=== PATIENT | female | born 1990 | race Hispanic/Latino ===

== ENCOUNTER 2023-07-31 07:30 | Outpatient (CLI) | payer BC, MEDICAID, SELFPAY ==
[2023-07-31 08:51] LABS: Basophils Percent Auto 0.3 % (0.2-1.2); Eosinophils Absolute Auto 0.1 K/mm3 (0-0.3); Eosinophils Percent Auto 0.5 % (0-4.4); Hemoglobin 13.3 g/dL (12.0-15.0); Immature Granulocyte Absolute 0.04 K/mm3 (0.00-0.031); Immature Granulocyte Percent A 0.4 % (0-0.5); Lymphocytes Absolute Auto 2.51 K/mm3 (0.9-3.2); Lymphocytes Percent Auto 27.1 % (18.3-44.2); Mean Corpuscular HGB Conc 30.9 g/dl (32-36); Mean Corpuscular Hemoglobin 26.1 pg (26-34); Mean Corpuscular Volume 84.5 fl (80-100); Monocytes Absolute Auto 0.4 K/mm3 (0.1-0.6); Monocytes Percent Auto 4.6 % (2.6-8.5); Neutrophils Absolute Auto 6.2 K/mm3 (1.3-6.7); Neutrophils Percent Auto 67.1 % (45.5-73.1); Platelet Count Result 239 k/mm3 (150-375); Red Blood Count 5.09 M/mm3 (4.2-5.4); Red Cell Distribution Width 16.3 % (11.5-14.5); White Blood Count 9.3 K/mm3 (4.5-10.0)
[2023-07-31 08:59] LABS: Glucose 1 Hour PP 50gm Dose 119 mg/dL
[2023-07-31 09:39] LABS: HIV 1/2 Ab P24 Ag Result Negative (Negative)
[2023-07-31 09:41] LABS: Hepatitis B Surface Antigen Negative (Negative); Rubella IgG Antibody 15.9 IU/ML
[2023-07-31 14:31] LABS: Rapid Plasma Reagin Non-Reactive (NonReactive)
[2023-08-03 10:02] LABS: CMV IgG Antibody >10.00 U/mL (<0.60)
== END 2023-07-31 07:31 | disposition home or self-care (01) ==
LOC: ANHLAB 07:32
PROVIDERS: PCP Family Medicine; Visit Provider Obstetrics & Gynecology
DX: N91.2 Amenorrhea, unspecified (principal)
CPT/HCPCS: 36415; 82947; 84702; 85025; 86592; 86644; 86703; 86747; 86762; 86787; 86850; 86900; 86901; 87086; 87340; G0432

== ENCOUNTER 2023-08-08 07:59 | Emergency (ER) | payer BC, MEDICAID, SELFPAY ==
--- NOTE | ~2023-08-08 | US_ITS ---
EXAMINATION: US OB <= 14 weeks fetus DATE: 08/08/2023 09:48 INDICATION: Vaginal bleeding during first trimester TECHNIQUE: Real-time pelvic transabdominal and transvaginal ultrasound was performed. COMPARISON: None. FINDINGS: The uterus measures 14.1 x 7.9 x 9.8 cm.. There is an intrauterine gestational sac. There i s a 2.2 x 1.9 x 0.8 cm hypoechoic area adjacent to the gestational sac. heart motion is identif ied measuring 161 beats per minute (bpm) by M-mode Doppler. The crown rump length measures 4.4 cm, which correlates with an estimated gestational age of 11 weeks and 2 day(s) (+/-) 7 day(s). The ovaries are not visualized however no adnexal abnormality is seen. There is no free fluid in the pelvis. IMPRESSION: 1. Live intrauterine with an estimated gestational age of 11 weeks and 2 day(s) (+/-) 7 day (s) and an estimated delivery date of 02/25/2024. 2. Subchorionic hemorrhage. Reviewed, dictated and finalized at location F. [facility] IMPRESSION: 1. Live intrauterine with an estimated gestational age of 11 weeks an d 2 day(s) (+/-) 7 day(s) and an estimated delivery date of 02/25/2024. 2. Subchorionic hemorrhage.
[2023-08-08 08:03] VITALS: BP 149/86; PULSE 97; RESP 18; TEMP 36.4; O2SAT 99
--- NOTE | 2023-08-08 08:31 | ED.PREGNANCY ---
HPI - General Chief complaint: Vaginal Bleeding Stated complaint: 11 wks preg with bleeding Time Seen by Provider: 08/08/23 08:05 History of Present Illness HPI Narrative: 33-year-old female presenting to the emergency department for evaluation onset of vaginal bleeding this morning. Patient is with no prior complications with her . Patient states she is approximately 11 weeks and does follow-up with Dr. Powell. Patient has not had prior ultrasound with this . Patient describes having some dark red/brown blood. Patient noticed when she wiped she had some blood on the toilet paper but then when she looked to the bowl she has additional bleeding. Patient denies any associated abdominal pain with this. Related Data Home Medications Medication Instructions Recorded Confirmed propranolol 60 mg tablet 60 mg PO ONCE 08/22/22 07/29/23 Allergies Allergy/AdvReac Type Severity Reaction Status Date / Time No Known Allergies Allergy Unknown Verified 07/29/23 08:21 Review of Systems Review of Systems: All systems reviewed & are unremarkable except as noted in HPI and below PMFSH Past Medical History Medical History (Updated 08/08/23 @ 10:31 by Federico Fried MD) Heart palpitations Surgical History Surgical History H/O eye surgery History of cholecystectomy History of colposcopy Family History Family History Mother Diabetes mellitus Father Hypertension Social History Social History (Updated 07/29/23 @ 08:24 by ADINA Killian) Smoking status: Never smoker Second hand tobacco smoke exposure: No Alcohol intake: never Substance use: never Substance use type: does not use Do You Feel Safe in your Home?: Yes Lack of Transportation: No Lack of Food: Never True Current Housing: I Have Housing Concerned About Future Housing: No Difficulty Paying Gas/Electric Bills: No Difficulty Paying for Meds: No Currently Unemployed: No Education: Trade/Vocational Certificate Difficulty w/ Childcare or Family Care: No Living arrangements: other Additional living arrangements comments: children Occupation/Education: occupation Additional occupation/education comments: broker assistant Gender identity (if verbalized by the patient): Female Sexual Orientation (if Verbalized by the Patient): Straight or Heterosexual Exam Narrative: APPEARANCE: Well appearing, no pain, no distress, well-nourished. HEAD: normocephalic, atraumatic. EYES: PERRLA/EOMI, conjunctivae clear. NOSE: Normal no drainage EARS:TMS clear with good light reflex. THROAT: Pharynx clear, no exudate. NECK: Supple. No adenopathy, no masses. RESPIRATORY: Airway patent, respirations nonlabored. Clear to auscultation bilaterally, no rales, rhonchi, wheezing. CARDIOVASCULAR: Regular rate and rhythm without murmurs rubs or gallops. ABDOMINAL: Soft, nontender, nondistended, normal bowel sounds MUSCULOSKELETAL: Moves all extremities. Strength/ROM intact, No edema, No calf tenderness. NEURO: Alert. Cranial nerves II through XII intact. Grossly intact SKIN: Warm, dry. Normal Color Course Vital Signs Vital signs: Vital Signs Temperature 97.6 F 08/08/23 08:03 Pulse Rate 97 08/08/23 08:03 Respiratory Rate 18 08/08/23 08:03 Blood Pressure 149/86 H 08/08/23 08:03 Pulse Oximetry 99 08/08/23 08:03 Oxygen Delivery Room Air 08/08/23 08:03 Temperature 97.6 F 08/08/23 08:03 Pulse Rate 77 08/08/23 10:44 Respiratory Rate 17 08/08/23 10:44 Blood Pressure 114/78 08/08/23 10:44 Pulse Oximetry 100 08/08/23 10:44 Oxygen Delivery Room Air 08/08/23 08:03 MDM - OB/Uterine Contractions Differential Diagnosis Differential diagnosis: Likely normal delivery at term and premature labor Lab Data Attestation: I reviewed the patient
[2023-08-08] MEDS: SODIUM CHLORIDE 0.9% IV 1,000 ML 999 ML IV CONT (08:42)
[2023-08-08 08:48] VITALS: BP 109/75; PULSE 77; RESP 16; O2SAT 99
[2023-08-08 08:53] LABS: Basophils Percent Auto 0.4 % (0.2-1.2); Eosinophils Absolute Auto 0.1 K/mm3 (0-0.3); Eosinophils Percent Auto 0.5 % (0-4.4); Hemoglobin 13.4 g/dL (12.0-15.0); Immature Granulocyte Absolute 0.03 K/mm3 (0.00-0.031); Immature Granulocyte Percent A 0.3 % (0-0.5); Lymphocytes Absolute Auto 3.51 K/mm3 (0.9-3.2); Lymphocytes Percent Auto 34.6 % (18.3-44.2); Mean Corpuscular HGB Conc 31.2 g/dl (32-36); Mean Corpuscular Hemoglobin 26.5 pg (26-34); Mean Platelet Volume 10.1 fl (7.4-10.4); Monocytes Absolute Auto 0.5 K/mm3 (0.1-0.6); Monocytes Percent Auto 4.9 % (2.6-8.5); Neutrophils Percent Auto 59.3 % (45.5-73.1); Platelet Count Result 235 k/mm3 (150-375); Red Blood Count 5.06 M/mm3 (4.2-5.4); Red Cell Distribution Width 16.7 % (11.5-14.5); White Blood Count 10.2 K/mm3 (4.5-10.0)
[2023-08-08 09:07] LABS: Bacteria Urine 1+ /hpf; Need Manual Microscopic Reviewed; Non Pathogenic Casts 0-2; RBC Urine >100 /hpf (0-2); Squamous Epithelial Cell Urine Few /hpf (Few)
[2023-08-08 09:08] LABS: Appearance Urine Turbid (Clear); Bilirubin Urine 1+ (Negative); Blood Urine 3+ (Negative); Color Urine Orange (Yellow); Glucose Urine UA Negative (Negative); Ketones Urine Negative (Negative); Leukocyte Esterase Ur 1+ LEU/UL (Negative); Nitrate Urine Negative (Negative); Protein Urine 2+ mg/dL (Negative); Specific Grav Ur 1.021 (1.001-1.035); Urobilinogen Urine 0.2 mg/dL (<2.0)
[2023-08-08 09:14] LABS: Add Urine Microscopic? YES
[2023-08-08 10:44] VITALS: BP 114/78; PULSE 77; RESP 17; O2SAT 100
== END 2023-08-08 10:46 | disposition home or self-care (01) ==
PROVIDERS: Emergency Provider Emergency Medicine; PCP Nurse Practitioner Family
DX: O46.8X1 Other antepartum hemorrhage, first trimester (principal); Z90.49 Acquired absence of other specified parts of digestive tract
CPT/HCPCS: 36415; 76801; 81001; 84702; 85025; 85461; 86850; 86900; 86901; 87086; 87088; 99284; J7030

== ENCOUNTER 2023-11-27 07:54 | Outpatient (CLI) | payer BC, MEDICAID, SELFPAY ==
[2023-11-27 09:22] LABS: Basophils Percent Auto 0.3 % (0.2-1.2); Eosinophils Absolute Auto 0.1 K/mm3 (0-0.3); Eosinophils Percent Auto 0.5 % (0-4.4); Hematocrit 40.4 % (37.0-47.0); Immature Granulocyte Absolute 0.13 K/mm3 (0.00-0.031); Immature Granulocyte Percent A 1.1 % (0-0.5); Lymphocytes Absolute Auto 2.57 K/mm3 (0.9-3.2); Lymphocytes Percent Auto 22.4 % (18.3-44.2); Mean Corpuscular HGB Conc 32.2 g/dl (32-36); Mean Corpuscular Hemoglobin 28.8 pg (26-34); Mean Corpuscular Volume 89.4 fl (80-100); Monocytes Absolute Auto 0.5 K/mm3 (0.1-0.6); Monocytes Percent Auto 4.2 % (2.6-8.5); Neutrophils Absolute Auto 8.2 K/mm3 (1.3-6.7); Neutrophils Percent Auto 71.5 % (45.5-73.1); Platelet Count Result 210 k/mm3 (150-375); Red Blood Count 4.52 M/mm3 (4.2-5.4); Red Cell Distribution Width 14.8 % (11.5-14.5); White Blood Count 11.5 K/mm3 (4.5-10.0)
[2023-11-27 09:39] LABS: Glucose 1 Hour PP 50gm Dose 159 mg/dL
[2023-11-27 10:27] LABS: HIV 1/2 Ab P24 Ag Result Negative (Negative)
== END 2023-11-27 07:55 | disposition home or self-care (01) ==
PROVIDERS: PCP Nurse Practitioner Family; Visit Provider Obstetrics & Gynecology
DX: Z34.90 Encounter for supervision of normal pregnancy, unspecified, unspecified trimester (principal); Z3A.00 Weeks of gestation of pregnancy not specified
CPT/HCPCS: 36415; 82947; 85025; 86703; G0432

== ENCOUNTER 2023-12-04 06:51 | Outpatient (CLI) | payer BC, MEDICAID, SELFPAY ==
[2023-12-04 07:20] LABS: Glucose Fasting Gestational 90 mg/dL (>/=95)
[2023-12-04 09:08] LABS: Glucose 1 Hour Gest 126 mg/dL (>/=180)
[2023-12-04 09:49] LABS: Glucose 2 Hour Gest 126 mg/dL (>/= 155)
[2023-12-04 10:37] LABS: Glucose 3 Hour Gest 122 mg/dL (>/=140)
== END 2023-12-04 06:52 | disposition home or self-care (01) ==
LOC: ANHLAB 06:53
PROVIDERS: PCP Nurse Practitioner Family; Visit Provider Obstetrics & Gynecology
DX: R73.09 Other abnormal glucose (principal)
CPT/HCPCS: 36415; 82951; 82952

== ENCOUNTER 2023-12-10 10:16 | Observation (INO) | payer BC, MEDICAID, SELFPAY ==
--- NOTE | ~2023-12-10 | US_ITS ---
EXAMINATION: US renal BI DATE: 12/10/2023 12:35 INDICATION: Low back pain and hematuria TECHNIQUE: Multiple ultrasound grayscale images of the kidneys were obtained. COMPARISON: None. FINDINGS: The right kidney measures 12.1 x 5.1 x 7.2 cm. The left kidney measures 13.1 x 5.0 x 6.0 cm. The kidn eys demonstrate normal echogenicity. There is no hydronephrosis in either kidney. No stones identifi ed. The bladder is normal with bilateral ureteral jets visualized on color Doppler. Partially visuali zed gravid uterus along the dome of the bladder. IMPRESSION: 1. Mild right hydronephrosis with no evident urolithiasis and with bilateral ureteral jets visualize d in the bladder. This could be related to extrinsic compression of the right ureter by the gravid ut erus. Reviewed, dictated and finalized at location A. IMPRESSION: 1. Mild right hydronephrosis with no evident urolithiasis and with bilateral u reteral jets visualized in the bladder. This could be related to extrinsic comp ression of the right ureter by the gravid uterus.
--- NOTE | 2023-12-10 10:15 | OBADM ---
This patient, Callie Varma, admitted to the OB room OB Post 116 for observation. Patient/family oriented to hospital policies and general routines including ID bracelet, bed and alarms, visiting hours, pain management, procedures, bathroom and other care routines, personal items, smoking policy, room service/diet, and visiting hours. Patient/Family are encouraged to report perceived risks to care and to ask questions if they do not understand what they are told or what they should do.
--- NOTE | 2023-12-10 10:31 | PC.NURSE ---
Pt comes in with complaints of lower back pain and increased pressure of about the last hour. Pt denies increase in discharge and denies her water being broke. 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 Pt denies anything in the vagina in the last 24 hours.
--- NOTE | 2023-12-10 10:40 | PC.NURSE ---
pt states that since she has been laying down and on the monitor here her pain has gone away and the pressure has decreased. Pt was previously rating the pain 6/10.
[2023-12-10 10:45] VITALS: BP 120/75; PULSE 74
[2023-12-10 10:48] LABS: Add Urine Microscopic? YES; Appearance Urine Clear (Clear); Bacteria Urine None Seen /hpf; Bilirubin Urine Negative (Negative); Blood Urine 2+ (Negative); Color Urine Yellow (Yellow); Glucose Urine UA Negative (Negative); Ketones Urine Negative (Negative); Leukocyte Esterase Ur Trace LEU/UL (Negative); Nitrate Urine Negative (Negative); Non Pathogenic Casts 0-2; Protein Urine Negative (Negative); RBC Urine 51-100 /hpf (0-2); Specific Grav Ur 1.012 (1.001-1.035); Squamous Epithelial Cell Urine Occasional /hpf (Few); Urobilinogen Urine 0.2 mg/dL (<2.0); WBC Urine 0-5 /hpf (0-3); pH Urine 6.5 (5.0-9.0)
[2023-12-10 10:50] VITALS: BMI 36.6
--- NOTE | 2023-12-10 10:59 | PC.NURSE ---
Pt denies hx of UTI, no hx of kidney stones. pt denies complaint of pain at this time.
[2023-12-10 11:00] VITALS: BP 119/72; PULSE 71
[2023-12-10 11:15] VITALS: BP 114/76; PULSE 72
--- NOTE | 2023-12-10 11:20 | PC.NURSE ---
Dr. Zuniga updated on pt. MD order ultrasound kidney and then pt can be discharged after.
[2023-12-10 11:30] VITALS: BP 126/75; PULSE 73
--- NOTE | 2023-12-10 11:42 | PC.NURSE ---
okay with pt coming off the monitor.
[2023-12-10 11:48] VITALS: BP 120/75; PULSE 91
--- NOTE | 2023-12-15 10:35 | P.PNOB_ITS ---
OB - Triage/Final Diagnosis Visit Information Reason for evaluation: threatened labor Comments/Additional reasons for admission: I have assessed the risk for this patient, Callie Varma, and determined that she would benefit from observation care. Evaluation Laboratory results: Laboratory Tests 12/10/23 10:36 Urine Color Yellow Urine Appearance Clear Urine pH 6.5 Ur Specific [place] 1.012 Urine Protein Negative Urine Glucose (UA) Negative Urine Ketones Negative Ur Blood (Man) 2+ H Urine Nitrate Negative Urine Bilirubin Negative Urine Urobilinogen 0.2 Leukocyte Esterase Rfl Trace H Urine RBC 51-100 H Urine WBC 0-5 Ur Squamous Epith Cells Occasional Urine Bacteria None seen Urine Casts 0-2
== END 2023-12-10 13:01 | disposition home or self-care (01) ==
LOC: ANHOBOP 10:20 → ANHOBPP 10:20 → ANHOBOP 10:35 → ANHOBPP 10:35
PROVIDERS: Admitting Provider Obstetrics & Gynecology; PCP Nurse Practitioner Family; Visit Provider Obstetrics & Gynecology
DX: O47.03 False labor before 37 completed weeks of gestation, third trimester (principal); Z3A.28 28 weeks gestation of pregnancy
CPT/HCPCS: 59025; 76775; 81001; 87086; 87088; G0378; G0379

== ENCOUNTER 2024-02-19 04:59 | Inpatient (IN) | payer BC, MEDICAID, SELFPAY ==
[2024-02-19] VITALS (166 sets, daily range): BP systolic 98–155; BP diastolic 49–108; PULSE 25–110; RESP 16–18; TEMP 36.2–37.5; O2SAT 76–100; BMI 37.0
--- NOTE | 2024-02-19 04:59 | LDADM ---
This patient, Callie Varma, was admitted to Labor/Delivery/Recovery 104 on 02/19/24 at 04:59. Plans for labor, pain management and were discussed with patient. Patient/family oriented to hospital policies and general routines including ID bracelet, bed and alarms, visiting hours, pain management, procedures, bathroom and other care routines, personal items, smoking policy, room service/diet and guest tray routines, security routines, and visiting hours. Patient/Family are encouraged to report perceived risks to care and to ask questions if they do not understand what they are told or what they should do. See [facility]BI[facility] for further documentation.
[2024-02-19 06:22] LABS: Basophils Percent Auto 0.3 % (0.2-1.2); Eosinophils Absolute Auto 0.1 K/mm3 (0-0.3); Eosinophils Percent Auto 0.8 % (0-4.4); Hematocrit 40.4 % (37.0-47.0); Hemoglobin 13.4 g/dL (12.0-15.0); Immature Granulocyte Absolute 0.07 K/mm3 (0.00-0.031); Immature Granulocyte Percent A 0.7 % (0-0.5); Lymphocytes Absolute Auto 2.91 K/mm3 (0.9-3.2); Lymphocytes Percent Auto 28.5 % (18.3-44.2); Mean Corpuscular HGB Conc 33.2 g/dl (32-36); Mean Corpuscular Hemoglobin 29.2 pg (26-34); Mean Platelet Volume 9.9 fl (7.4-10.4); Monocytes Absolute Auto 0.7 K/mm3 (0.1-0.6); Monocytes Percent Auto 6.4 % (2.6-8.5); Neutrophils Absolute Auto 6.5 K/mm3 (1.3-6.7); Neutrophils Percent Auto 63.3 % (45.5-73.1); Platelet Count Result 205 k/mm3 (150-375); Red Blood Count 4.59 M/mm3 (4.2-5.4); Red Cell Distribution Width 14.7 % (11.5-14.5); White Blood Count 10.2 K/mm3 (4.5-10.0)
[2024-02-19] MEDS: LACTATED RINGERS 1,000 ML 125 ML IV CONT ×2 (06:27→08:21)
[2024-02-19] MEDS: OXYTOCIN 30 UNITS/NS 500 ML 30 UNITS/500 ML BAG IV CONT (06:28)
[2024-02-19 07:16] LABS: HIV 1/2 Ab P24 Ag Result Negative (Negative)
--- NOTE | 2024-02-19 07:22 | WPDHPUPDATE1 ---
History and Physical Update Update Date/Time: 02/19/24 07:22 History and Physical has been reviewed, including an updated exam of the patient. There are NO changes in the patient's condition. Risks, benefits, and alternatives have been discussed and questions answered. Patient agrees to proceed with procedure.
--- NOTE | 2024-02-19 07:23 | WPDOBADMIT ---
Obstetrics - Admit Note Admission Note: record reviewed. No pertinent additions to the history and/or any subsequent changes in the physical findings that are not consistent with the expected course of the were found. Additions to the history and/or subsequent changes in the physical findings follow. None.
[2024-02-19 07:51] LABS: Rapid Plasma Reagin Non-Reactive (NonReactive)
--- NOTE | 2024-02-19 08:15 | WPDANESEPP ---
Anes - Eval Pre Procedure Procedure: labor epidural Date/Time: 02/19/24 08:15 Surgeon: Sarah Preop Diagnosis: Pain during labor Pre Op Diagnosis: IOL Patient Data Age: 33 Gender: F Height: 1.68 m Weight: 104 kg Last Vital Signs Temp 36.2 C L 02/19/24 06:28 Pulse 63 02/19/24 08:01 BP 128/81 02/19/24 08:01 Pulse Ox 98 02/19/24 08:11 O2 Del Method Room Air 02/19/24 06:10 Allergies Allergy/AdvReac Type Severity Reaction Status Date / Time No Known Allergies Allergy Unknown Verified 02/16/24 14:45 Home Medications Medication Instructions Recorded Confirmed Type vitamins-iron fumarate 65 1 tablet PO DAILY 08/18/23 02/19/24 History mg iron-folic acid 1 mg tablet aspirin 81 mg tablet,delayed 81 mg PO DAILY 10/20/23 02/19/24 History release (Adult Low Dose Aspirin) Laboratory Tests 02/19/24 06:04 WBC 10.2 H K/mm3 (4.5-10.0) RBC 4.59 M/mm3 (4.2-5.4) Hgb 13.4 g/dL (12.0-15.0) Hct 40.4 % (37.0-47.0) MCV 88.0 fl (80-100) MCH 29.2 pg (26-34) MCHC 33.2 g/dl (32-36) RDW 14.7 H % (11.5-14.5) Plt Count 205 k/mm3 (150-375) MPV 9.9 fl (7.4-10.4) Immature Gran % (Auto) 0.7 H % (0-0.5) Neut % (Auto) 63.3 % (45.5-73.1) Lymph % (Auto) 28.5 % (18.3-44.2) [place] % (Auto) 6.4 % (2.6-8.5) Eos % (Auto) 0.8 % (0-4.4) Baso % (Auto) 0.3 % (0.2-1.2) Lymph # (Auto) 2.91 K/mm3 (0.9-3.2) [place] # (Auto) 0.7 H K/mm3 (0.1-0.6) Eos # (Auto) 0.1 K/mm3 (0-0.3) Baso # (Auto) 0.0 K/mm3 (0.0-0.1) Abs Immat Gran (auto) 0.07 H K/mm3 (0.00-0.031) Absolute Neuts (auto) 6.5 K/mm3 (1.3-6.7) Absolute Nucleated RBC 0.000 K/mm3 (0.0-0.012) Nucleated RBC % 0.0 % (0.0-0.2) RPR Non-reactive (NonReactive) HIV 1&2 Ab/P24 Ag 4thGn Negative (Negative) Blood Type O Positive Antibody Screen Negative Patient hx anesthesia problems: none Family hx anesthesia problems: none Results Review: All pre-operative results and documents have been reviewed as part of the pre-operative evaluation. [facility] Past Medical History Medical History Encounter for screening examination for sexually transmitted disease Heart palpitations Surgical History Surgical History H/O eye surgery History of cholecystectomy History of colposcopy Family History Family History Mother Diabetes mellitus Father Hypertension Social History Social History Smoking status: Never smoker Second hand tobacco smoke exposure: No Alcohol intake: never Substance use: never Substance use type: does not use Do You Feel Safe in your Home?: Yes Lack of Transportation: No Lack of Food: Never True Current Housing: I Have Housing Concerned About Future Housing: No Difficulty Paying Gas/Electric Bills: No Difficulty Paying for Meds: No Currently Unemployed: No Education: High School Diploma/GED Difficulty w/ Childcare or Family Care: No Living arrangements: other Additional living arrangements comments: children Occupation/Education: occupation Additional occupation/education comments: assistant engineer Gender identity (if verbalized by the patient): Female Sexual Orientation (if Verbalized by the Patient): Straight or Heterosexual Spiritual care concerns: No Exam Day of Procedure 02/19/24 08:15 Patient weight: obese Heart: regular rate and rhythm Lungs: normal air movement Airway: Mallampati scale class II Neurological: alert and oriented
--- NOTE | 2024-02-19 12:22 | PM.OBPRVD ---
OB - Vaginal Delivery Note Procedure Delivery date: 02/19/24 Induction method: Per Pitocin Protocol Delivery augmentation: Rupture of Membranes Delivery monitor: External FHT and External Uterine Route of delivery: Laceration Description: Perineal - 2nd Degree Delivery repair: chromic Specimen: No Quantitative Blood Loss (ml): 200 Anesthesia type: Epidural Disposition: Floor Complications: No immediate complications Narrative: Patient prepped and draped in usual manner for this procedure. Maternal expulsive efforts readily delivered vertex over intact perineum. Nuchal cord was noted and readily reduced. Rest of baby was delivered without difficulty. Cord clamped cut and placenta delivered spontaneously. Cervix vagina vulva were inspected with second-degree laceration noted. This was approximated using 2-0 chromic to approximate the vaginal tissue deep tissue subcuticular later to approximate the perineal tissue. Uterus well contracted was no significant bleeding. Patient type procedure well and immediate postoperative condition of mother and baby were both excellent. Baby Weeks of gestation at delivery: 39 Infant gender: Female presentation: vertex position: Right Occiput Anterior Placenta delivery description: Spontaneous Cord Vessel Description: 3 Vessels, Nuchal Cord and Reduced
[2024-02-19] MEDS: OXYTOCIN 30 UNITS/NS 500 ML 30 UNITS/500 ML BAG 125 UNITS IV CONT (12:41)
--- NOTE | 2024-02-19 16:21 | OBPPTRN ---
1550-Patient transferred to post room #288 via wheelchair. Support person present. Oriented to unit, room, information board, rooming in, admission packet and security measures. Patient verbalizes understanding.
[2024-02-19] MEDS: IBUPROFEN 600 MG TABLET PO (18:07)
[2024-02-19] MEDS: DOCUSATE SODIUM 100 MG CAPSULE PO (18:08)
[2024-02-19] MEDS: ACETAMINOPHEN 325 MG TABLET 650 MG PO (22:52)
[2024-02-20] MEDS: IBUPROFEN 600 MG TABLET PO ×2 (00:14→09:43)
[2024-02-20] MEDS: ACETAMINOPHEN 325 MG TABLET 650 MG PO (04:46)
[2024-02-20 04:49] VITALS: BP 109/64; PULSE 71; RESP 18; TEMP 36.5; O2SAT 98
[2024-02-20 05:11] LABS: Hematocrit 37.4 % (37.0-47.0); Hemoglobin 12.2 g/dL (12.0-15.0)
--- NOTE | 2024-02-20 07:58 | PM.OBDSVD ---
DS: Admitting Diagnosis Discharge Date 02/20/24 Admitting Diagnosis intrauterine at term DS: Discharge Diagnosis Discharge Diagnosis (1) Normal vaginal delivery: Code(s): O80 - Encounter for full-term uncomplicated delivery Status: Acute OB - DS: Summary OB Procedures : None OB Procedures Intrapartum: Spontaneous Vag Delivery OB Procedures: : None Peripartum Data Laceration Description: Perineal - 2nd Degree Status at Discharge Functional status at discharge: independent ambulation Overall status at discharge: patient is back to baseline Time Spent with Patient Time attestation: Total time spent providing and/or coordinating discharge services: Time spent: Less than 30 minutes Exam Const: General: comfortable and no acute distress Resp: Effort & Inspection: normal respiratory effort Auscultation: clear to auscultation bilaterally Cardio: Rate: regular rate GI: GI Palp: Yes Soft to palpation Auscultation: normal bowel sounds Other: Fundus firm below umbilicus Psych: Appearance: grossly normal Mental Status: mental status grossly normal Affect: normal affect DS: Data Data Completed and Pending Labs on day of discharge: Labs from last 24 hours 02/20/24 04:43 Hgb 12.2 Hct 37.4 Discharge Plan Discharge Discharging Clinician: Don Michaud Patient Disposition: Home, Self-Care Activity: as tolerated and pelvic rest Diet: regular Patient Instructions: Antibiotic Form, Vaginal Delivery (DC) Stand Alone Forms: General Discharge Information Follow-up/Referrals: Judah Zuniga MD [Physician] - Discharge Medications: New ibuprofen 600 mg tablet 600 mg PO Q6H PRN (Reason: pain) Qty: 30 0RF acetaminophen 500 mg tablet 500 mg PO Q6H PRN (Reason: pain) Qty: 30 0RF Continued vit-iron fum-folic ac 65 mg iron- 1 mg tablet 1 tablet PO DAILY Discontinued aspirin [Adult Low Dose Aspirin] 81 mg tablet,delayed release (DR/EC) 81 mg PO DAILY Date of admission: 02/19/24 04:59 Primary Care Provider: KELLI,AISHWARYA Admitting Provider: Judah Zuniga Attending physician on admission: Judah Zuniga Condition: Stable
--- NOTE | 2024-02-20 09:30 | PC.NURSE ---
Mother verbalizes she is able to independently latch with appropriate positioning and alignment. She denies any nipple discomfort. She is some and supplementing sometimes. She only breastfed one of her other children. is currently meeting outcomes for weight, output, jaundice, blood sugar and feeding frequencies of 8-12 times in 24 hours. Encouraged mother to call for a latch check today. Mother is encouraged to call for assistance if her infant doesn?t latch, pain with latching, questions or concerns. Mother voiced understanding of information shared along with the mom/baby guide for an additional resource. Reported to the Primary RN.
[2024-02-20] MEDS: MULTIVIT/MIN/PREN/FOL AC/IRON TABLET 1 TAB PO (09:43)
[2024-02-20] MEDS: DOCUSATE SODIUM 100 MG CAPSULE PO (09:43)
[2024-02-20 09:44] VITALS: BP 108/67; PULSE 83; RESP 18; TEMP 37; O2SAT 97
[2024-02-20] MEDS: SIMETHICONE 80 MG TAB.CHEW PO (09:44)
--- NOTE | 2024-02-20 10:25 | WPDANLDPN2 ---
Anes-Prog Note L&D Date/Time: 02/20/24 10:25 Comfortable throughout: labor and delivery Neuraxial method: epidural Epidural/Spinal procedure site: clean & non-tender Neuro status: Neuro function grossly intact. Cardiovascular status: normal Respiratory status: normal Airway patency: baseline Mental status: baseline Post-Op hydration status: normal Vital Signs: Last Vital Signs Temp 36.5 C 02/20/24 04:49 Pulse 71 02/20/24 04:49 Resp 18 02/20/24 04:49 BP 109/64 02/20/24 04:49 Pulse Ox 98 02/20/24 04:49 O2 Del Method Room Air 02/19/24 16:00 Pain score (VAS): 0 Post-procedural complaints: none Patient feedback: Patient satisfied with anesthetic care.
[2024-02-22 11:09] VITALS: BP 127/69; PULSE 68; RESP 18; TEMP 36.7; O2SAT 100
== END 2024-02-20 15:55 | disposition home or self-care (01) | DRG 807 ==
LOC: ANHOB2 02-20 14:12 → ANHLDR 02-22 09:16 → ANHOB2 02-22 09:16
PROVIDERS: Admitting Provider Obstetrics & Gynecology; PCP Nurse Practitioner Family; Visit Provider Student in an Organized Health Care Education/Training Program
DX: O69.81X0 Labor and delivery complicated by cord around neck, without compression, not applicable or unspecified (principal); Z37.0 Single live birth; Z3A.39 39 weeks gestation of pregnancy; O70.1 Second degree perineal laceration during delivery
CPT/HCPCS: 36415; 85014; 85018; 85025; 86592; 86703; 86850; 86900; 86901; A9270; G0432; J2590; J2795; J7120

== ENCOUNTER 2024-04-15 07:48 | Outpatient (CLI) | payer BC, MEDICAID, SELFPAY ==
[2024-04-15 08:37] LABS: Hematocrit 41.8 % (37.0-47.0); Hemoglobin 13.6 g/dL (12.0-15.0); Mean Corpuscular HGB Conc 32.5 g/dl (32-36); Mean Corpuscular Hemoglobin 28.4 pg (26-34); Mean Corpuscular Volume 87.3 fl (80-100); Platelet Count Result 225 k/mm3 (150-375); Red Blood Count 4.79 M/mm3 (4.2-5.4); Red Cell Distribution Width 13.2 % (11.5-14.5); White Blood Count 8.4 K/mm3 (4.5-10.0)
== END 2024-04-15 07:49 | disposition home or self-care (01) ==
LOC: ANHSURGERY 07:53
PROVIDERS: PCP Nurse Practitioner Family; Visit Provider Obstetrics & Gynecology
DX: Z30.09 Encounter for other general counseling and advice on contraception (principal)
CPT/HCPCS: 36415; 85027

== ENCOUNTER 2024-04-21 00:55 | Day surgery (SDC) | payer BC, MEDICAID, SELFPAY ==
[2024-04-12 14:19] VITALS: BMI 33.5
--- NOTE | 2024-04-12 14:21 | PC.NURSE ---
Report to the Outpatient Waiting Room, entrance under the green pavilion located off [facility], at time __6:30am____ on date _04-21-2024. Planned Procedure Time: 8:30am. *Time changes happen often and if your time is changed the preop area will call you the afternoon before. - You and your visitor will be asked to self-screen and do not enter if you have any COVID symptoms. Please call surgeon if you need to reschedule. - A mask is optional within the hospital at this time. Patients may have clear liquids (water, carbonated beverages, clear teas, apple juice) until 3 hours prior to surgery with a maximum of 20 ounces. PLEASE STOP DRINKING BY 5:30AM. * No food from midnight until time of surgery and no smoking Take only the following medications with a SIP of water on the morning of surgery: N/A DO NOT STOP ANY OF YOUR OTHER PRESCRIPTION MEDICATIONS PRIOR TO SURGERY EXCEPT THE FOLLOWING: N/A Please no make-up, nail bel[place]ian, hairspray, perfume, deodorant, or body powder the day of surgery.? No jewelry (including any body piercings) or valuables the day of surgery, leave them at home.? Please take a shower or bath the night before, or the morning of, surgery with an antibacterial soap.? Wear comfortable, loose fitting clothing.? - Jewelry must be removed prior to entering the operating room.? Rings and piercings that are not removed may be cut off. - The hospital will not accept responsibility for valuables.? - Please leave all valuables, including medications, at home the day of surgery. If you are going home after surgery, a licensed over the road driver must drive you home.? - NO public transportation without another adult if you receive anesthesia. - We recommend that an adult stay with you for 24 hours following discharge. - We also recommend that you do not drive, make important decision, drink alcoholic beverages, or take any drugs that were not prescribed by your health care provider for at least 24 hours after your discharge time. *Follow any additional instructions given to you from your surgeon. Telephone instructions given to ___DULCE (PATIENT) and asked if any additional questions and then verbalized understanding. Patient advised to call surgeon office or pre surgery nurse liaison [phone] if any additional questions.
--- NOTE | 2024-04-20 08:46 | PM.IMHP ---
H&P: HPI History of Present Illness Date/Time: 04/20/24 08:46 33-year-old 5 para [id number] female presents for permanent sterilization. We have discussed nonpermanent methods and she declines these. We have discussed the permanence, failure rate, increased risk of ectopic and regret. Patient states good understanding and desires to proceed. Chief Complaint: Desires sterilization Review of Systems Review of Systems: All systems reviewed & are unremarkable except as noted in HPI and below PMFSH Past Medical History Medical History Encounter for screening examination for sexually transmitted disease Heart palpitations Surgical History Surgical History H/O eye surgery History of cholecystectomy History of colposcopy Family History Family History Mother Diabetes mellitus Father Hypertension Social History Social History Smoking status: Never smoker Second hand tobacco smoke exposure: No Alcohol intake: never Substance use: never Substance use type: does not use Do You Feel Safe in your Home?: Yes Lack of Transportation: No Lack of Food: Never True Current Housing: I Have Housing Concerned About Future Housing: No Difficulty Paying Gas/Electric Bills: No Difficulty Paying for Meds: No Currently Unemployed: No Education: High School Diploma/GED Difficulty w/ Childcare or Family Care: No Living arrangements: with family Additional living arrangements comments: children Occupation/Education: occupation 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 Gender identity (if verbalized by the patient): Female Sexual Orientation (if Verbalized by the Patient): Straight or Heterosexual Spiritual care concerns: No Meds Home Medications and Allergies Home Medications Medication Instructions Recorded Confirmed Type No Home Medications 04/12/24 04/12/24 History Allergies Allergy/AdvReac Type Severity Reaction Status Date / Time No Known Allergies Allergy Unknown Verified 04/12/24 14:21 Exam Const: General: cooperative, healthy appearing and comfortable Resp: Effort & Inspection: normal respiratory effort Auscultation: clear to auscultation bilaterally Cardio: Rate: regular rate Rhythm: regular rhythm GI: Inspection: normal to inspection Auscultation: normal bowel sounds : External Female Exam: normal external appearance Speculum Exam - Vagina: normal appearance of the vagina Speculum Exam - Cervix: normal appearance of the cervix Bimanual exam- vagina & uterus: normal bimanual exam Bimanual Exam- Adnexa, other: normal adnexae Assessment and Plan Assessment and plan (1) Encounter for female sterilization procedure: Code(s): Z30.2 - Encounter for sterilization Status: Acute Plan proceed with laparoscopic bilateral salpingectomy
[2024-04-21] VITALS (8 sets, daily range): BP systolic 97–123; BP diastolic 64–85; PULSE 55–84; RESP 16–18; TEMP 36.2–37.1; O2SAT 98–100; BMI 33.6
[2024-04-21 06:50] LABS: BEDSIDEPREGUCG Negative (Negative)
[2024-04-21] MEDS: LACTATED RINGERS 1,000 ML 30 ML IV CONT ×2 (07:00→10:28)
[2024-04-21] MEDS: ACETAMINOPHEN 500 MG TABLET 1000 MG PO (07:01)
[2024-04-21] MEDS: KETOROLAC 15 MG/ML VIAL (*BKC) IV PUSH (07:01)
--- NOTE | 2024-04-21 07:26 | WPDANESEPPF ---
Anes - Initial Pre Proc Eval Procedure: Operation Date: 04/21/24 08:30 Proposed Procedures p Bilateral Laparoscopic Salpingectomy - Judah Zuniga MD Date/Time: 04/21/24 07:26 Surgeon: Judah Zuniga MD Pre Op Diagnosis: Desire Sterilization Patient Data Age: 33 Gender: F Height: 1.68 m Weight: 94.5 kg Last Vital Signs Temp 98.7 F 04/21/24 07:03 Pulse 72 04/21/24 07:03 Resp 16 04/21/24 07:03 BP 123/75 04/21/24 07:03 Pulse Ox 98 04/21/24 07:03 O2 Del Method Room Air 04/21/24 07:03 Allergies Allergy/AdvReac Type Severity Reaction Status Date / Time No Known Allergies Allergy Unknown Verified 04/21/24 07:05 Home Medications Medication Instructions Recorded Confirmed Type No Home Medications 04/12/24 04/21/24 History Laboratory Tests 04/21/24 06:46 POC Urine HCG, Qual Negative (Negative) Patient hx anesthesia problems: none Family hx anesthesia problems: none Results Review: All pre-operative results and documents have been reviewed as part of the pre-operative evaluation. [facility] Past Medical History Medical History Encounter for screening examination for sexually transmitted disease Heart palpitations Surgical History Surgical History H/O eye surgery History of cholecystectomy History of colposcopy Family History Family History Mother Diabetes mellitus Father Hypertension Social History Social History Smoking status: Never smoker Second hand tobacco smoke exposure: No Alcohol intake: never Substance use: never Substance use type: does not use Do You Feel Safe in your Home?: Yes Lack of Transportation: No Lack of Food: Never True Current Housing: I Have Housing Concerned About Future Housing: No Difficulty Paying Gas/Electric Bills: No Difficulty Paying for Meds: No Currently Unemployed: No Education: High School Diploma/GED Difficulty w/ Childcare or Family Care: No Living arrangements: with family Additional living arrangements comments: children Occupation/Education: occupation 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 Gender identity (if verbalized by the patient): Female Sexual Orientation (if Verbalized by the Patient): Straight or Heterosexual Spiritual care concerns: No Anes - Eval Final PreProcedure Day of Procedure 04/21/24 07:26 Patient weight: obese Heart: regular rate and rhythm Lungs: clear to auscultation Airway: Mallampati scale class II Neurological: alert and oriented Last oral intake: >/= 8 hours ASA classification: II Emergent: no Anesthetic plan: proceed Anesthesia type and monitoring: general ETT and standard monitoring Results Review: All pre-operative results and documents have been reviewed as part of the pre-operative evaluation. Informed Consent: The patient's anesthetic plan and its attendant risks and benefits were discussed with the patient/family/POA. Questions were solicited and answers provided to the satisfaction of the patient/family/POA.
--- NOTE | 2024-04-21 08:51 | WPDHPUPDATE1 ---
History and Physical Update Update Date/Time: 04/21/24 08:51 History and Physical has been reviewed, including an updated exam of the patient. There are NO changes in the patient's condition. Risks, benefits, and alternatives have been discussed and questions answered. Patient agrees to proceed with procedure.
--- NOTE | 2024-04-21 09:48 | W.PM.PROC2 ---
Procedure Note - Detailed Date of Procedure 04/21/24 Pre-op Diagnosis Desire Sterilization Post-op Diagnosis Same Procedure Performed laparoscopic bilateral salpingectomy Surgeon Judah Zuniga MD Anesthesia General Findings uterus tubes ovaries without abnormality Description of Procedure Patient prepped and draped in the usual manner for this procedure. Cervical instruments were placed for uterine ability throughout the case. Abdominal trocar sites were placed under direct visualization. Using Harmonic scalpel the mesial salpinx was cauterized and cut bilaterally and tubes removed without difficulty. There was no bleeding. Gas was allowed to escape incisions approximated using 4-0 Monocryl the patient was sent to recovery room in stable condition. Estimated Blood Loss 10 Urine Output 100 Drains No Packing No Pathology Yes Complications No immediate complications Condition Stable Disposition PACU [facility] Billing Surgery - Charge Forward: Surgery Billing
[2024-04-21] MEDS: oxyCODONE HCL (*CRX) 5 MG TAB IR PO (10:55)
== END 2024-04-21 11:38 | disposition home or self-care (01) ==
PROVIDERS: PCP Nurse Practitioner Family; Visit Provider Obstetrics & Gynecology
PROC: (CPT 49320; principal; 2024-04-21 08:30)
DX: Z30.2 Encounter for sterilization (principal); E66.9 Obesity, unspecified; Z68.33 Body mass index [BMI] 33.0-33.9, adult
CPT/HCPCS: 58661; 88302; A9270; J1100; J1885; J2250; J2405; J2704; J3010; J7030; J7120